=== PATIENT | male | born 1980 | race African-American/Black ===

== ENCOUNTER 2019-08-12 20:13 | Emergency (ER) | payer SELFPAY | END 2019-08-12 21:49 | disposition left against medical advice (07) | LOC: ER 20:13 | DX: S61.219A Laceration without foreign body of unspecified finger without damage to nail, initial encounter (principal); X58.XXXA Exposure to other specified factors, initial encounter; Y93.89 Activity, other specified; Y92.89 Other specified places as the place of occurrence of the external cause; Y99.8 Other external cause status; Z53.21 Procedure and treatment not carried out due to patient leaving prior to being seen by health care provider ==